=== PATIENT | female | born 1940 | race American Indian/Alaskan Native ===

== ENCOUNTER 2016-07-21 08:32 | Outpatient (CLI) | payer MEDICARE ==
--- NOTE | 2016-07-21 17:32 | Magnetic Resonance Report ---
MR scan of the cranium was performed without contrast. Pulse sequences included: 1. T1 weighted sagittal and axial images without contrast 2. T2 weighted axial and coronal images 3. FLAIR axial images 4. Diffusion-weighted axial images 5. Apparent diffusion coefficient images 6. gradient echo axial images Views of the posterior fossa showed a normal craniocervical junction. Cerebellar pontine angles were normal with normal seventh-eighth nerve complexes. Brainstem and cerebellum were normal. The ventricular system showed no dilatation or distortion. Images of the hemispheres showed no areas of increased or decreased signal. 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 Hippocampal regions were normal and did not show atrophy. Mild araiosis was also present Sinuses, flow voids in the [place], orbits, pituitary and basal ganglia were normal. Impression: Minimally Abnormal MR scan of the cranium without contrast. 1. 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 mild araiosis
== END 2016-07-21 08:33 | disposition home or self-care (01) ==
LOC: SPVIMAG 08:32
PROVIDERS: ATTEND Specialist
DX: G31.84 Mild cognitive impairment of uncertain or unknown etiology (principal); G31.89 Other specified degenerative diseases of nervous system
CPT/HCPCS: 70551